=== PATIENT | male | born 1980 | race Hispanic/Latino ===

== ENCOUNTER 2021-11-03 12:53 | Emergency (ER) | payer SELFPAY ==
[2021-11-03] MEDS ORDERED: hydrOXYzine 25 MG TAB ONE (14:29)
== END 2021-11-03 14:27 | disposition home or self-care (01) ==
LOC: CSHERS 12:53
DX: F41.1 Generalized anxiety disorder (principal)
CPT/HCPCS: 99283

== ENCOUNTER 2023-09-15 14:06 | Emergency (ER) | payer OTHER, SELFPAY ==
[2023-09-15] MEDS ORDERED: Lidocaine 1% (PF) 30 ML VIAL ONE (14:25)
[2023-09-15] MEDS ORDERED: Boostrix 0.5 ML (Tdap) VIAL (>/=7 yrs of age) ONE (14:25)
[2023-09-15] MEDS ORDERED: CEFAZOLIN 1 GM VIAL ONE (15:06)
[2023-09-15] MEDS ORDERED: Ketorolac Tromethamine 30 MG (1 mL) VIAL ONE (15:06)
[2023-09-15] MEDS ORDERED: Bupivacaine PF 0.5% 30 ML VIAL ONE (16:40)
== END 2023-09-15 19:46 | disposition short-term general hospital (02) ==
LOC: CSHERS 14:06
DX: S62.637B Displaced fracture of distal phalanx of left little finger, initial encounter for open fracture (principal); W26.8XXA Contact with other sharp object(s), not elsewhere classified, initial encounter; Y92.69 Other specified industrial and construction area as the place of occurrence of the external cause; Y99.0 Civilian activity done for income or pay
CPT/HCPCS: 90715; J0665; J0690; J1885; J2001